=== PATIENT | female | born 1960 ===

== ENCOUNTER 2021-04-30 14:53 | Emergency (ER) | payer MEDICAID ==
--- NOTE | 2021-04-30 15:10 | EDM.PDOC ---
ED HPI GENERAL MEDICAL PROBLEM - General Chief Complaint: Head Injury Stated Complaint: SEIZURE/FALL Time Seen by Provider: 04/30/21 15:00 Source of Information: Reports: Patient, EMS, [facility] Records History Limitations: Reports: Altered Mental Status - History of Present Illness INITIAL COMMENTS - FREE TEXT/NARRATIVE: Patient presents to the Ed via EMS for a witnessed seizure and head injury. Patient resides at a local longterm in the memory care unit. SHe was walking into the cafeteria and suddenly started to have seizure type activity, fell and struck her head on the floor and continue to have general convulsions for about 2 minutes. She did come around, was groggy but came back to her baseline of dementia and confusion. Small laceration to the left posterior head. Is maintained on Plavix. Trauma code called at evaluation in the ED IV was placed en route, blood glucose was 121. Alert, no medications given. Patient is poor historian but no known history of seizure in the past. No family present at time of arrival. Onset: Today, Sudden Duration: Minutes: (2), Resolved Prior to Arrival Location: Reports: Head Quality: Reports: Ache Severity: Mild Improves with: Reports: None Worsens with: Reports: None Associated Symptoms: Reports: Confusion (at baseline) Past Medical History Cardiovascular History: Reports: CAD, Prior Cardiac Arrest, PTCA, Stents Respiratory History: Reports: Intubation, Previous Psychiatric History: Reports: Dementia Review of Systems - Review of Systems Review Of Systems: See Below (due to dementia, no complaints.) Psychiatric: Reports: Confusion ED EXAM, GENERAL - Physical Exam Exam: See Below Exam Limited By: Altered Mental Status General Appearance: Alert, Anxious Eye Exam: Bilateral Eye: Other (no nystagmus, ablility to track is limited. ) Ears: Normal External Exam Ear Exam: Bilateral Ear: Auricle Normal, Canal Normal, TM normal Nose: Normal Inspection, Normal Mucosa, No Blood Throat/Mouth: Normal Lips, Normal Teeth, Other (superficial laceration to the left lateral tongue) Head: Other (swelling left posterior occipital with small abrasion noted, not actively bleeding) Neck: Other (in c collar, had complained of pain, ) Respiratory/Chest: No Respiratory Distress, Lungs Clear, Normal Breath Sounds Cardiovascular: Normal Peripheral Pulses, Regular Rate, Rhythm, No Edema GI/Abdominal: Normal Bowel Sounds, Soft, Non-Tender (Female) Exam: Deferred Rectal (Female) Exam: Deferred Back Exam: Normal Inspection, Full Range of Motion Extremities: Normal Inspection, Normal Range of Motion, Non-Tender Neurological: Alert, Oriented, CN II-XII Intact, Disoriented (at baseline) Psychiatric: Anxious ED TRAUMA PROCEDURES - Laceration/Wound Repair Head Lac/Wound Length In cm: 3.0 Appearance: Superficial, Irregular Saline Irrigation (cc's): 10 Exploration/Debridement/Repair: Wound Explored, In a Bloodless Field, Explored to Base Closed With: Dermabond Progress/Comments: large hemtoma under macerated tissues. Not amenable to cosme or sutures. no bleeding after cleaning. dermabond tolerated well. hemostasis achieved #1 Interpretation EKG Date: 04/30/21 Time: 15:02 Rhythm: NSR [place] Level: Normal P-Wave: Present QRS: Normal ST-T: Normal Course - Vital Signs Last Recorded V/S: 97/66, 88, 20, 97%, 97.4 - Orders/Labs/Meds Orders: Active Orders 24 hr Category Date Time Status EKG 12 Lead [EKG Documentation Completion] [RC] STAT Care 04/30/21 15:06 Active Urinary Catheter Assessment [RC] ASDIRECTED Care 04/30/21 15:05 Active Urinary Catheter Insertion [Insert Urinary Catheter] [ Care 04/30/21 15:15 Ordered OM.PC] Q24H Vaccines to be Administered [RC] PER UNIT ROUTINE Care 04/30/21 15:29 Active Labs: Laboratory Tests 04/30/21 04/30/21 04/30/21 Range/Units 15:15 15:19 15:19 WBC 7.0 (4.0-10.0) x10^3/uL RBC 3.59 L (4.00-5.50) x10^6/uL Hgb 11.6 L (12.0-16.0) g/dL Hct 35.2 (33.0-47.0) % MCV 98.1 H (78.0-93.0) fL MCH 32.3 H (26.0-32.0) pg MCHC 33.0 (32.0-36.0) g/dL RDW Coeff of Durga 13.4 (10.0-15.0) % Plt Count 302 (130-400) x10^3/uL Neut % (Auto) 58.1 (50.0-80.0) % Lymph % (Auto) 34.2 (25.0-50.0) % [place] % (Auto) 6.6 (2.0-11.0) % Eos % (Auto) 0.7 (0.0-4.0) % Baso % (Auto) 0.4 (0.2-1.2) % PT 10.0 (9.9-12.5) SEC INR 0.9 L (2.0-3.5) Sodium (136-145) mmol/L Potassium (3.5-5.1) mmol/L Chloride (98-107) mmol/L Carbon Dioxide (21-32) mmol/L Anion Gap (5-15) mmol/L BUN (7-18) mg/dL Creatinine (0.55-1.02) mg/dL Est Cr Clr Drug Dosing Estimated GFR (MDRD) Glucose (70-99) mg/dL Calcium (8.5-10.1) mg/dL Corrected Calcium (8.5-10.1) mg/dL Total Bilirubin (0.2-1.0) mg/dL AST (15-37) U/L ALT (14-59) U/L Alkaline Phosphatase (46-116) U/L Troponin I High Sens (<=51) ng/L Total Protein (6.4-8.2) g/dL Albumin (3.4-5.0) g/dL Globulin g/dL Albumin/Globulin Ratio Urine Color Yellow (YELLOW) Urine Appearance Clear (CLEAR) Urine pH 6.0 (5.0-8.0) Ur Specific [place] 1.020 Urine Protein Negative (NEGATIVE) mg/dL Urine Glucose (UA) Negative (NEGATIVE) mg/dL Urine Ketones Negative (NEGATIVE) mg/dL Urine Occult Blood Negative (NEGATIVE) Urine Nitrite Negative (NEGATIVE) Urine Bilirubin Negative (NEGATIVE) Urine Urobilinogen 0.2 (0.2) EU/dL Ur Leukocyte Esterase Negative (NEGATIVE) U Hyaline Cast (Auto) Few Urine RBC 0-5 (NOT SEEN) /HPF Urine WBC 0-5 (NOT SEEN) /HPF Ur Squamous Epith Cells Rare (NOT SEEN) /HPF Urine Bacteria Not seen (NOT SEEN) /HPF Urine Mucus Not seen (NOT SEEN) /LPF 06/12/21 Range/Units 15:19 WBC (4.0-10.0) x10^3/uL RBC (4.00-5.50) x10^6/uL Hgb (12.0-16.0) g/dL Hct (33.0-47.0) % MCV (78.0-93.0) fL MCH (26.0-32.0) pg MCHC (32.0-36.0) g/dL RDW Coeff of Durga (10.0-15.0) % Plt Count (130-400) x10^3/uL Neut % (Auto) (50.0-80.0) % Lymph % (Auto) (25.0-50.0) % [place] % (Auto) (2.0-11.0) % Eos % (Auto) (0.0-4.0) % Baso % (Auto) (0.2-1.2) % PT (9.9-12.5) SEC INR (2.0-3.5) Sodium 142 (136-145) mmol/L Potassium 3.7 (3.5-5.1) mmol/L Chloride 105 (98-107) mmol/L Carbon Dioxide 26 (21-32) mmol/L Anion Gap 14.7 (5-15) mmol/L BUN 17 (7-18) mg/dL Creatinine 0.8 (0.55-1.02) mg/dL Est Cr Clr Drug Dosing TNP Estimated GFR (MDRD) > 60 Glucose 124 H (70-99) mg/dL Calcium 8.7 (8.5-10.1) mg/dL Corrected Calcium 8.9 (8.5-10.1) mg/dL Total Bilirubin 0.5 (0.2-1.0) mg/dL AST 33 (15-37) U/L ALT 53 (14-59) U/L Alkaline Phosphatase 66 (46-116) U/L Troponin I High Sens 5 (<=51) ng/L Total Protein 7.2 (6.4-8.2) g/dL Albumin 3.8 (3.4-5.0) g/dL Globulin 3.4 g/dL Albumin/Globulin Ratio 1.12 Urine Color (YELLOW) Urine Appearance (CLEAR) Urine pH (5.0-8.0) Ur Specific [place] Urine Protein (NEGATIVE) mg/dL Urine Glucose (UA) (NEGATIVE) mg/dL Urine Ketones (NEGATIVE) mg/dL Urine Occult Blood (NEGATIVE) Urine Nitrite (NEGATIVE) Urine Bilirubin (NEGATIVE) Urine Urobilinogen (0.2) EU/dL Ur Leukocyte Esterase (NEGATIVE) U Hyaline Cast (Auto) Urine RBC (NOT SEEN) /HPF Urine WBC (NOT SEEN) /HPF Ur Squamous Epith Cells (NOT SEEN) /HPF Urine Bacteria (NOT SEEN) /HPF Urine Mucus (NOT SEEN) /LPF Meds: Medications Discontinued Medications Generic Name Dose Route Start Last Admin Trade Name Freq PRN Reason Stop Dose Admin Diphtheria/Tetanus/Acell Pertussis 0.5 ml 04/30/21 15:29 04/30/21 15:53 Diphtheria,Pertussis(Acell),Tetanus Vaccine 0.5 Ml Syringe IM 04/30/21 15:30 0.5 ml .ONCE ONE Administration - Radiology Interpretation CT Results Date: 04/30/21 (ct of the c spine with no acute fracture or subluxation) CT Results Time: 16:36 (ct head without acute intercranial findings) - Re-Assessments/Exams Free Text/Narrative Re-Assessment/Exam: 04/30/21 15:21 Patient is alert, confused but directable. not currently seizing. will get head and c cpsine ct, labs and cath urine to look for source of seizure. Free Text/Narrative Re-Assessment/Exam: 04/30/21 16:44 scans were negative, labs normal and urine normal. no seizures here. will have her follow up with neurology per family decision Departure - Departure Time of Disposition: 16:37 (lives in memory care at longterm) Disposition: Home, Self-Care 01 Condition: Fair Clinical Impression: Head injury, acute, with loss of consciousness, Seizure, Scalp laceration - Discharge Information *PRESCRIPTION DRUG MONITORING PROGRAM REVIEWED*: No *COPY OF PRESCRIPTION DRUG MONITORING REPORT IN PATIENT JOSELUIS: No Instructions: Head Injury, Adult, Hematoma, [id number], Seizure, Adult, [id number], Laceration Care, Adult, [id number] Referrals: Hemalatha Mendez, [Primary Care Provider] - Forms: ED Department Discharge Additional Instructions: Laboratory studies were normal. Tetanus booster was given. Scalp hematoma with dermabond glue over the area. Head and neck ct scans are normal, Unknown reason for seizure today. Normal in the ED and no repeat of the seizure activity. Follow up with neurology for continued concerns for seizures. - My Orders Last 24 Hours: My Active Orders 04/30/21 15:05 Urinary Catheter Assessment [RC] ASDIRECTED 04/30/21 15:06 EKG 12 Lead [EKG Documentation Completion] [RC] STAT 04/30/21 15:15 Urinary Catheter Insertion [Insert Urinary Catheter] [OM.PC] Q24H 04/30/21 15:29 Vaccines to be Administered [RC] PER UNIT ROUTINE - Assessment/Plan Last 24 Hours: My Active Orders 04/30/21 15:05 Urinary Catheter Assessment [RC] ASDIRECTED 04/30/21 15:06 EKG 12 Lead [EKG Documentation Completion] [RC] STAT 04/30/21 15:15 Urinary Catheter Insertion [Insert Urinary Catheter] [OM.PC] Q24H 04/30/21 15:29 Vaccines to be Administered [RC] PER UNIT ROUTINE
[2021-04-30] MEDS ORDERED: Diphtheria,Pertussis(Acell),Tetanus Vaccine 0.5 ML Syringe IM ONE (15:29)
[2021-04-30 15:47] LABS: ANION GAP 14.7 mmol/L (5-15); CHLORIDE,CL 105 mmol/L (98-107); SODIUM,NA 142 mmol/L (136-145)
--- NOTE | 2021-04-30 16:32 | CT ---
[id number] CT/CT Head WO IV EXAM: CT Head WO IV CLINICAL DATA: TRAUMA, HEAD INJURY. COMPARISON STUDY: None FINDINGS: No intracranial hemorrhage, extra-axial fluid collection, mass, or acute ischemia. Generalized parenchymal atrophy with scattered areas of nonspecific white matter disease, commonly seen as sequela of chronic microvascular ischemia. Left frontal parietal scalp hematoma without underlying calvarial fracturenn. Paranasal sinuses and mastoid air cells are clear. IMPRESSION: No acute intracranial findings. Andres Christian DO 04/30/21 [id number] Thank you for allowing us to participate in the care of your patient.
--- NOTE | 2021-04-30 16:35 | CT ---
[id number] CT/CT Cervical Spine WO IV Exam: CT Cervical Spine WO IV CLINICAL DATA: TRAUMA. COMPARISON: None. FINDINGS: No acute fracture or subluxation is seen. Chronic grade 1 anterolisthesis of C4 on C5. The C1-C2 articulation is unremarkable. The prevertebral soft tissues are within normal limits. Multilevel degenerative changes of the cervical spine including loss of disc space height, endplate osteophytosis and facet arthropathy. Findings are most pronounced at C5-C6. IMPRESSION: NO ACUTE FRACTURE OR SUBLUXATION. Andres Christian DO 04/30/21 [id number] Thank you for allowing us to participate in the care of your patient.
== END 2021-04-30 17:59 ==
LOC: VM.ED 14:53
DX: S01.01XA Laceration without foreign body of scalp, initial encounter (principal); R56.9 Unspecified convulsions; Z23 Encounter for immunization; W18.09XA Striking against other object with subsequent fall, initial encounter; Y92.129 Unspecified place in nursing home as the place of occurrence of the external cause
CPT/HCPCS: 12002; 36415; 70450; 72125; 80053; 81001; 84484; 85025; 85610; 90471; 90715; 93005; 93010; 99285; 99285-25

== ENCOUNTER 2022-05-22 09:16 | Emergency (ER) | payer MEDICAID | END 2022-05-22 09:37 | disposition home or self-care (01) | LOC: VM.ED 09:16 | DX: R56.9 Unspecified convulsions (principal); I25.10 Atherosclerotic heart disease of native coronary artery without angina pectoris; I25.2 Old myocardial infarction; Z95.5 Presence of coronary angioplasty implant and graft; Z79.02 Long term (current) use of antithrombotics/antiplatelets; Z79.899 Other long term (current) drug therapy | CPT/HCPCS: 99284 ==

== ENCOUNTER 2022-05-22 14:12 | Emergency (ER) | payer MEDICAID ==
[2022-05-22] MEDS: LORazepam 2 MG/ML SDV IM ONE (14:20)
[2022-05-22] MEDS: Haloperidol Lactate 5 MG/ML SDV IM ONE (14:40)
[2022-05-22 14:57] LABS: CHLORIDE,CL 106 mmol/L (98-107); SODIUM,NA 141 mmol/L (136-145)
[2022-05-22 14:59] LABS: ANION GAP 15.2 mmol/L (5-15); ESTIMATED GFR 71 mL/min (>=60)
[2022-05-22] MEDS: Divalproex Sodium 500 MG Tab.ER PO ONE (17:00)
== END 2022-05-22 17:05 ==
LOC: VM.ED 14:12
DX: S06.9X9A Unspecified intracranial injury with loss of consciousness of unspecified duration, initial encounter (principal); S00.03XA Contusion of scalp, initial encounter; I25.10 Atherosclerotic heart disease of native coronary artery without angina pectoris; I25.2 Old myocardial infarction; Z79.82 Long term (current) use of aspirin; Z79.899 Other long term (current) drug therapy; W18.09XA Striking against other object with subsequent fall, initial encounter
CPT/HCPCS: 36415; 80053; 84443; 85025; 86140; 96372; 99284; A9270-GY; J1630; J2060